=== PATIENT | female | born 1995 ===

== ENCOUNTER 2021-12-08 13:57 | Outpatient (CLI) | payer OTHER | END 2021-12-08 17:20 | disposition home or self-care (01) | LOC: PRENATAL 13:57 | PROVIDERS: ATTEND Obstetrics & Gynecology Maternal & Fetal Medicine | DX: O35.0XX0 Maternal care for (suspected) central nervous system malformation in fetus, not applicable or unspecified (principal); O35.3XX0 Maternal care for (suspected) damage to fetus from viral disease in mother, not applicable or unspecified; O28.1 Abnormal biochemical finding on antenatal screening of mother; Z3A.20 20 weeks gestation of pregnancy ==

== ENCOUNTER 2022-11-13 12:22 | Outpatient (CLI) | payer OTHER | END 2022-11-13 13:45 | disposition home or self-care (01) | LOC: PRENATAL 12:22 | PROVIDERS: ATTEND Obstetrics & Gynecology Maternal & Fetal Medicine | DX: O36.80X0 Pregnancy with inconclusive fetal viability, not applicable or unspecified (principal); Z3A.12 12 weeks gestation of pregnancy ==

== ENCOUNTER 2023-01-01 14:59 | Outpatient (CLI) | payer OTHER | END 2023-01-01 15:45 | disposition home or self-care (01) | LOC: PRENATAL 14:59 | PROVIDERS: ATTEND Obstetrics & Gynecology Maternal & Fetal Medicine | DX: O35.9XX0 Maternal care for (suspected) fetal abnormality and damage, unspecified, not applicable or unspecified (principal); O35.3XX0 Maternal care for (suspected) damage to fetus from viral disease in mother, not applicable or unspecified; Z3A.19 19 weeks gestation of pregnancy ==